=== PATIENT | female | born 1975 | race American Indian/Alaskan Native ===

== ENCOUNTER 2017-06-10 07:23 | Day surgery (SDC) | payer BC ==
[2017-06-10] MEDS ORDERED: ECOTRIN PO NR (07:50)
[2017-06-10] MEDS ORDERED: NACL 0.9% 500 ML 500 ML IV SCH (08:00)
[2017-06-10 08:41] LABS: INR 0.94 (0.87-1.13)
[2017-06-10 08:43] LABS: BUN/Creatinine Ratio 14; Blood Urea Nitrogen 10 mg/dL (7-17); Calcium 8.8 mg/dL (8.4-10.2); Hemolysis Index 3
[2017-06-10 08:59] LABS: Basophils % (Auto) 0.4 % (0.0-1.8); Eosinophils # (Auto) 0.4 K/mm3 (0.0-0.4); Eosinophils % (Auto) 6.2 % (0.0-4.3); Hematocrit 35.6 % (30.3-42.9); Hemoglobin 11.9 gm/dl (10.1-14.3); Mean Corpuscular HGB Conc 33 % (30-34); Mean Corpuscular Hemoglobin 27 pg (28-32); Mean Corpuscular Volume 81 fl (79-97); Monocytes # (Auto) 0.5 K/mm3 (0.0-0.8); Monocytes % (Auto) 7.5 % (0.0-7.3); Platelet Count 269 K/mm3 (140-440); Red Blood Count 4.38 M/mm3 (3.65-5.03); Red Cell Distribution Width 15.1 % (13.2-15.2)
[2017-06-10] MEDS ORDERED: XYLOCAINE 2% INFILTRATI ONE (10:03)
[2017-06-10] MEDS ORDERED: HEPARIN 10,000 UNITS/10 ML ONE (10:03)
[2017-06-10] MEDS ORDERED: CALAN ONE (10:03)
[2017-06-10] MEDS ORDERED: NITROGLYCERIN SYRINGE 0 ML ONE (10:04)
[2017-06-10] MEDS: VERSED ONE ×2 (10:41→10:43)
[2017-06-10] MEDS: HEPARIN/NS 5000 UNIT/500ML(CATH LAB) 1,000 ML IR ONE ×2 (10:41→10:44)
[2017-06-10] MEDS: SUBLIMAZE ONE ×2 (10:41→10:43)
--- NOTE | 2017-06-10 11:50 | Cardiac Catherization Report ---
CARDIAC CATHETERIZATION REPORT INDICATION FOR PROCEDURE: The patient is 42-year-old -[place] female with history of abnormal stress test performed a few weeks ago and she is having chest pain and she was offered the alternatives of CTA of coronaries versus versus invasive coronary angiography vs medical therapy. The patient elected to have coronary angiography to be performed. The patient is aware of the procedure, potential complications and alternatives of therapy available. DESCRIPTION OF PROCEDURE: The patient was brought to the catheterization laboratory in a fasting condition. The right wrist area and forearm was thoroughly cleansed with Betadine solution. The patient was evaluated for appropriateness of IV sedation and when it was felt appropriate the patient received IV Versed and fentanyl starting at 10:41 a.m. Subsequently, the patient was continuously monitored and extra dose of fentanyl and Versed were given for sedating the patient. She was continuously monitored with pulse oximetry and EKG monitoring, and noninvasive blood pressure monitoring. Subsequently, right radial artery puncture was made using 21-gauge arterial puncture needle. A 5-Stateless slender radial sheath was introduced. Using 5-Stateless multipurpose catheter, angiograms of left coronary artery and right coronary artery were obtained in multiple views followed by left ventriculogram performed in DIA projection using hand injection. At the end of the procedure, catheter and sheath were removed. Good hemostasis was achieved with pressure bandage. The patient was monitored until 11:00 a.m. for moderate sedation and when she was stable she was discharged to the outpatient area in a stable condition. The patient tolerated the procedure well. No untoward complications were noted. The patient will be monitored for next few hours and when stable will be discharged home on medical therapy. Findings were explained to the patient. Following findings were noted: HEMODYNAMICS: 1. Opening aortic pressure 115/72, left ventricular pressure 118/19. No gradient across the aortic valve. Estimated ejection fraction was 55%. 2. Left ventriculogram done in DIA projection showed normal sized left ventricle with normal contractility and diastolic and systolic volumes are normal. Mitral regurgitation could not be evaluated because of limited amount of dye injected. Right coronary artery, dominant vessel is tortuous, but angiographically smooth and normal, arises normally. 3. Left coronary artery arises normally from left coronary cusp. Left main, LAD and its branches, circumflex artery and branch are angiographically smooth and normal. FINAL IMPRESSION: 1. Normal sized left ventricle with normal contractility, end-diastolic pressure upper limits of normal. 2. Normal aortic pressures. 3. Normal coronary anatomy with normal left ventricular systolic function. The patient tolerated the procedure well. No untoward complications were noted. The patient will be continued on risk factor modification. JOB# [id number] CAROLE/RYAN ESCOBAR
--- NOTE | 2017-06-10 13:13 | Short Stay Summary ---
Short Stay Documentation Date of service: 06/10/17 - History H&P: obtained from office - Allergies and Medications Current Medications: Allergies No Known Allergies Allergy (Unverified 06/10/17 07:23) Home Medications Medication Instructions Recorded Confirmed Last Taken Type Fluticasone [Flonase] 1 spray INNOSTRIL PRN PRN 06/10/17 06/10/17 06/06/17 History 1 spray Ibuprofen 800 mg PO PRN PRN 06/10/17 06/10/17 05/27/17 History 800mg Active Medications Sodium Chloride (Nacl 0.9% 500 Ml) 500 mls @ 50 mls/hr IV DIRECT DERECK Stop: 06/10/17 17:59 Last Admin: 06/10/17 09:07 Dose: 50 mls/hr - Brief post op/procedure progress note Date of procedure: 06/10/17 Pre-op diagnosis: abnormal stress test Post-op diagnosis: same Procedure: L:HC - see cath report Anesthesia: local Estimated blood loss: none Condition: stable - Disposition Condition at discharge: Good Disposition: [id number] TO HOME OR SELFCARE - Discharge Diagnoses (1) Abnormal stress test Status: Chronic (2) Chest pain Status: Chronic (3) Normal coronary arteries Status: Chronic Short Stay Discharge Plan Activity: advance as tolerated Diet: regular Wound: open to air, keep clean and dry, per your surgeon's advice Follow up with: EL BREWER MD [Primary Care Provider] - 7 Days Forms: CardCath PCI D/C Instructions
[2017-06-10 13:15] VITALS: BP 116/70
== END 2017-06-10 07:24 | disposition home or self-care (01) ==
LOC: CATHLABREC 07:23
PROVIDERS: ATTEND Internal Medicine
DX: I25.10 Atherosclerotic heart disease of native coronary artery without angina pectoris (principal); I25.2 Old myocardial infarction
CPT/HCPCS: 36415; 80048; 85025; 85610; 85730; 93005; 93010; 93458; 99156; 99157; C1894; J1644; J2250; J3010; J7040; Q9967